=== PATIENT | female | born 1970 | race Caucasian/White ===

== ENCOUNTER → 2018-01-24 | Outpatient (CLI) | payer BC ==
[2018-01-24 13:41] VITALS: BP 101/60; PULSE 73; RESP 14; TEMP 98.7
--- NOTE | 2018-01-24 14:22 | FL ---
EXAMINATION TYPE: FL barium swallow DATE OF EXAM: 01/24/2018 CLINICAL HISTORY: History of lap band placed 14 years ago with dysphasia and uncontrolled weight loss . TECHNIQUE: A single contrast esophagram is performed utilizing barium. A total of 1.33 minutes of f luoroscopic time was utilized during procedure. 24 spot images are saved. COMPARISON: None FINDINGS: Preprocedure imaging shows normal angle PHI band but suspicious inferior positioning measu red 2.3 cm from left aspect of diaphragm. Cholecystectomy clips are incidentally noted. When patient drank contrast there is some rapid flow of contrast material lung periphery of the esoph carine and some delayed nonpulsatile flow. There is suspected intraluminal debris. Loss of normal mucos a is felt present. There is confirmation of lap band slippage as there is prominent stomach above lap band extending into the lower thoracic mediastinum. There is delay in flow of contrast at site of la p band with thin caliber channel. IMPRESSION: Abnormal study. Lap band slippage is confirmed. Moderate to severe stenosis at lap band. Abnormal appearance of esophagus overall. Consider endoscopy evaluation to further assess before surg ical removal.
[2018-01-24 14:35] VITALS: BMI 19.5
--- NOTE | 2018-01-24 15:29 | P.HPBAR ---
Bariatric H&P - History & Physicial H&P Date: 01/24/18 History & Physicial: Visit/CC: frequent heartburn/vomiting with band Patient initial contact: Initial weight: 107.955 kg Initial weight in pounds: 238.00 Height: 5 ft 2.5 in Initial BMI: 42.8 Last weight: Current weight: 49.124 kg Current weight in pounds: 108.30 Current BMI: 19.5 [place] body weight (based on NIH guidelines): 51.029 kg Excess body weight loss: 103.3% A she presents today for lab band follow up. She's not been seen in several years. She has some complaints of extra weight loss. Her BMI is 19. The patient is a 47 year-old F who presents for Bariatric Assessment. Past Medical History Past Medical History: Thyroid Disorder Additional Past Medical History / Comment(s): hyprothyroidism, History of Any Multi-Drug Resistant Organisms: None Reported Past Surgical History: Bariatric Surgery, Section, Cholecystectomy Additional Past Surgical History / Comment(s): Lap band placed January 2004, panniculectomy 2004, x2 (1996 & 1999), deviated septum 1994, heart catheterization February 2015 (did NOT have [place]; NO stent placement), D&C Additional Past Anesthesia/Blood Transfusion Reaction / Comm: "Extremely emotional" when she awakes from anesthesia, No blood transfusions to date Past Psychological History: Depression Smoking Status: Current every day smoker Past Alcohol Use History: Occasional Additional Past Alcohol Use History / Comment(s): started smoking at age 17, 1/ 2 pack/day current use Past Drug Use History: None Reported Surgical - Exam Vital Signs Temp Pulse Resp BP 98.7 F 73 14 101/60 01/24/18 13:13 01/24/18 13:13 01/24/18 13:13 01/24/18 13:13 - General well developed, no distress - Abdomen Abdomen: soft, non tender Bariatric Assessment & Plan Plan: Patient LAP-BAND was empty. She had 2.8 mL remove her band. Patient esophagram which showed a questionably displaced LAP-BAND. Is unclear. The prolapse. The patient had her band emptied in the office she was able to water without difficulty. She'll follow-up in one week for recheck. Bariatric Checklist Checklist: Plan: Checklist: EGD: 1. Hiatal hernia: 2. H. Pylori: HgbA1c: Vitamin D: Smoking: Current every day smoker Primary care physician referral: Dr. Carlos Ryan ([facility]) Psychiatry clearance: Cardiology clearance: Sleep study: Diet journal: VTE risk score: VTE risk level: Rehab needs at discharge:
== END | disposition home or self-care (01) ==
LOC: BARWHC3 13:05
PROVIDERS: ATTEND Surgery
DX: Z09 Encounter for follow-up examination after completed treatment for conditions other than malignant neoplasm (principal); K95.09 Other complications of gastric band procedure; R12 Heartburn; R11.10 Vomiting, unspecified; R63.4 Abnormal weight loss; E03.9 Hypothyroidism, unspecified; F32.9 Major depressive disorder, single episode, unspecified; F17.200 Nicotine dependence, unspecified, uncomplicated; Z90.49 Acquired absence of other specified parts of digestive tract; Z98.890 Other specified postprocedural states; Z98.84 Bariatric surgery status
CPT/HCPCS: 74220; 99203

== ENCOUNTER → 2018-01-31 | Outpatient (CLI) | payer BC ==
[2018-01-31 13:30] VITALS: BP 117/74; PULSE 71; RESP 16; TEMP 98.6; BMI 20.8
--- NOTE | 2018-01-31 14:05 | FL ---
SINGLE CONTRAST Esophagram : CLINICAL HISTORY: 47-year-old female with dysphagia and reflux, patient feels better after having fl uid removed on 01/24/2018. TECHNIQUE: Single contrast exam performed with 4 ounces of thin barium. Total fluoroscopy time: 2 minutes 17 seconds. Total images: 29. FINDINGS: The patient swallowed oral contrast without difficulty. However, there is progressive healing within the lower esophagus with progressive distention of the esophagus and only trickle flow across the GE junction and lap band was the patient has ingested all 4 ounces. At 10 minutes, most of the contrast remains pooled in the esophagus up to the mid chest and there are recurrent episodes of tertiary peristalsis. 20 minute post procedure image shows mild residual contrast in the lower esophagus with most of the c ontrast having passed into the distal stomach and proximal small bowel. IMPRESSION: There appears to be a relatively moderate obstruction at the level of the GE junction. The patient sw allowed a total of 4 ounces and during the first 10 minutes, contrast remained pooled in the dilated esophagus up to the mid chest and only trickle flow was seen across the GE junction and lap band. The 20 minute post procedure image shows most of the contrast in the distal stomach and proximal smal l bowel and a small amount of residual contrast in the lower esophagus. Consider further endoscopic evaluation for assessment of the GE junction.
--- NOTE | 2018-01-31 15:03 | P.HPBAR ---
Bariatric H&P - History & Physicial H&P Date: 01/31/18 History & Physicial: Visit/CC: esophagus follow-up Patient initial contact: Initial weight: 107.955 kg Initial weight in pounds: 238.00 Height: 5 ft 2.5 in Initial BMI: 42.8 Last weight: 108 Current weight: 52.617 kg Current weight in pounds: 116.00 Current BMI: 20.8 [place] body weight (based on NIH guidelines): 51.029 kg Excess body weight loss: 97.2% The patient is a 47 year-old F who presents for Bariatric Assessment. Patient presents for follow-up. She's had minimal dysphagia since her band was emptied. Her repeat esophagram shows evidence of improvement of her soft dilation. There is still some moderate hesitancy across the band. Patient's gained 10 pounds since her last visit. Past Medical History Past Medical History: Thyroid Disorder Additional Past Medical History / Comment(s): hyprothyroidism, History of Any Multi-Drug Resistant Organisms: None Reported Past Surgical History: Bariatric Surgery, Section, Cholecystectomy Additional Past Surgical History / Comment(s): Lap band placed January 2004, panniculectomy 2004, x2 (1996 & 1999), deviated septum 1994, heart catheterization February 2015 (did NOT have [place]; NO stent placement), D&C Additional Past Anesthesia/Blood Transfusion Reaction / Comm: "Extremely emotional" when she awakes from anesthesia, No blood transfusions to date Past Psychological History: Depression Smoking Status: Current every day smoker Past Alcohol Use History: Occasional Additional Past Alcohol Use History / Comment(s): started smoking at age 17, 1/ 2 pack/day current use Past Drug Use History: None Reported Surgical - Exam Vital Signs Temp Pulse Resp BP 98.6 F 71 16 117/74 01/31/18 13:27 01/31/18 13:27 01/31/18 13:27 01/31/18 13:27 - General well developed, no distress - Abdomen Abdomen: soft, non tender Bariatric Assessment & Plan Plan: The patient has no complaints of abdominal pain or significant dysphagia. She denies any nausea or vomiting. Her band is empty. The patient will be observed. She will follow-up in 4 weeks. She'll have another esophagram done. If she has persistent dilation of her esophagus she may require removal of her LAP-BAND. Bariatric Checklist Checklist: Plan: Checklist: EGD: 1. Hiatal hernia: 2. H. Pylori: HgbA1c: Vitamin D: Smoking: Current every day smoker Primary care physician referral: Dr. Carlos Ryan ([facility]) Psychiatry clearance: Cardiology clearance: Sleep study: Diet journal: VTE risk score: VTE risk level: Rehab needs at discharge:
== END | disposition home or self-care (01) ==
LOC: RADFLMAIN 10:55
PROVIDERS: ATTEND Surgery
DX: Z48.815 Encounter for surgical aftercare following surgery on the digestive system (principal); F17.200 Nicotine dependence, unspecified, uncomplicated; Z98.84 Bariatric surgery status
CPT/HCPCS: 74220; 99211

== ENCOUNTER → 2018-02-21 | Outpatient (CLI) | payer BC ==
--- NOTE | 2018-02-21 12:42 | FL ---
EXAMINATION TYPE: FL barium swallow DATE OF EXAM: 02/21/2018 LAP BANDING LIMITED ESOPHAGRAM: CLINICAL HISTORY: History of lap band for 14 years with fill recently removed. TECHNIQUE: Limited esophagram is performed utilizing 20oz of contrast. A total of 50 seconds of fluo roscopic time was utilized during procedure. 14 spot images are saved after preprocedure mixing machine tender cork rod image. COMPARISON: Prior Limited esophagram January 24, 2018 and January 31, 2018. FINDINGS: Pre-procedure mixing machine tender cork rod image shows lap band in satisfactory position in proximal stomach ju st below the left hemidiaphragm on current study. The Phi angle is normal. The patient then drank oral contrast. There is satisfactory flow of contrast along the course of the esophagus. There is good flow of contrast along the course of the lap band with thin caliber channel noted, there is no evidence of contrast extravasation to suggest leak. Underlying esophageal dysmoti lity is present. There is no convincing evidence of lap band slippage on current study as there is no t prominent stomach above the band. Cholecystectomy clips are redemonstrated. IMPRESSION: No evidence of lap band slippage on current study. No significant obstruction after fill removed
== END ==
LOC: RADFLMAIN 11:21
PROVIDERS: ATTEND Surgery
DX: Z98.84 Bariatric surgery status (principal)
CPT/HCPCS: 74220

== ENCOUNTER → 2018-02-21 | Outpatient (CLI) | payer BC ==
[2018-02-21 13:07] VITALS: BP 110/55; PULSE 78; RESP 16; TEMP 98.7; BMI 22.9
--- NOTE | 2018-02-21 15:35 | P.HPBAR ---
Bariatric H&P - History & Physicial H&P Date: 02/21/18 History & Physicial: Visit/CC: band adj Patient initial contact: Initial weight: 107.955 kg Initial weight in pounds: 238.00 Height: 5 ft 2.5 in Initial BMI: 42.8 Last weight: 116 Current weight: 57.833 kg Current weight in pounds: 127.50 Current BMI: 22.9 [place] body weight (based on NIH guidelines): 51.029 kg Excess body weight loss: 88.0% The patient is a 47 year-old F who presents for Bariatric Assessment. Patient presents today for lab band follow up. Her band was emptied 2 weeks ago. She has gained 11 pounds since then. She says her dysphagia has resolved. Her recent esophagram performed today shows no evidence of gastric prolapse or obstruction. Past Medical History Past Medical History: Thyroid Disorder Additional Past Medical History / Comment(s): hypothyroidism History of Any Multi-Drug Resistant Organisms: None Reported Past Surgical History: Bariatric Surgery, Section, Cholecystectomy Additional Past Surgical History / Comment(s): Lap band placed January 2004, panniculectomy 2004, x2 (1996 & 1999), deviated septum 1994, heart catheterization February 2015 (did NOT have [place]; NO stent placement), D&C Additional Past Anesthesia/Blood Transfusion Reaction / Comm: "Extremely emotional" when she awakes from anesthesia, No blood transfusions to date Past Psychological History: Depression Smoking Status: Current every day smoker Past Alcohol Use History: Occasional Additional Past Alcohol Use History / Comment(s): started smoking at age 17, 1/ 2 pack/day current use Past Drug Use History: None Reported Surgical - Exam Vital Signs Temp Pulse Resp BP 98.7 F 78 16 110/55 02/21/18 13:05 02/21/18 13:05 02/21/18 13:05 02/21/18 13:05 - General well developed, no distress - Eyes PERRL - ENT normal pinna - Neck no masses - Respiratory normal expansion - Cardiovascular Rhythm: regular - Abdomen Abdomen: soft, non tender Bariatric Assessment & Plan Plan: Patient is doing well since her LAP-BAND was emptied. Her dysphagia is minimal. Patient will follow-up in 4 weeks for recheck. We will leave her band emptied for now. Bariatric Checklist Checklist: Plan: Checklist: EGD: 1. Hiatal hernia: 2. H. Pylori: HgbA1c: Vitamin D: Smoking: Current every day smoker Primary care physician referral: Dr. Carlos Ryan ([facility]) Psychiatry clearance: Cardiology clearance: Sleep study: Diet journal: VTE risk score: VTE risk level: Rehab needs at discharge:
== END | disposition home or self-care (01) ==
LOC: BARWHC3 12:48
PROVIDERS: ATTEND Surgery
DX: Z48.815 Encounter for surgical aftercare following surgery on the digestive system (principal); F17.210 Nicotine dependence, cigarettes, uncomplicated; Z90.49 Acquired absence of other specified parts of digestive tract; Z98.84 Bariatric surgery status; Z98.890 Other specified postprocedural states
CPT/HCPCS: 99211

== ENCOUNTER → 2018-04-04 | Outpatient (CLI) | payer BC ==
--- NOTE | 2018-04-04 14:41 | FL ---
SINGLE CONTRAST BARIUM SWALLOW CLINICAL HISTORY: 48-year-old female follow-up for dysphasia, patient with Lap band fill removal. Ass ess for any obstruction. TECHNIQUE: Single contrast exam performed with thin barium. Total fluoroscopy time: 1 minute 32 seconds. Total images: 16. FINDINGS: Initial dough scaler and mixer image shows appropriate orientation of the lap band. The patient swallowed oral contras t without difficulty or delay. Contrast passes to the distal esophagus. There is partial flow across the lap band with some hesitancy. The contrast stream across the lap band appears narrowed given wandy t there is no fill. Some contrast remains within the mid to lower esophagus and there are resultant m oderate tertiary peristaltic contractions with intermittent intraesophageal reflux. IMPRESSION: 1. No evidence for lap band prolapse. 2. Slightly tight lap band with relative restriction despite no fill. 3. Approximately half of each swallow passes. The remainder stays pooled in the esophagus where terti lion peristaltic contractions ensue with intermittent intraesophageal reflux. Findings suggest early p resbyesophagus.
[2018-04-04 15:26] VITALS: BP 109/72; PULSE 80; TEMP 98.1; BMI 24.5
--- NOTE | 2018-04-05 11:17 | P.HPBAR ---
Bariatric H&P - History & Physicial H&P Date: 04/04/18 History & Physicial: Visit/CC: lap band follow up Patient initial contact: Initial weight: 107.955 kg Initial weight in pounds: 238.00 Height: 5 ft 2.5 in Initial BMI: 42.8 Last weight: Current weight: 61.961 kg Current weight in pounds: 136.60 Current BMI: 24.5 [place] body weight (based on NIH guidelines): 51.029 kg Excess body weight loss: 80.7% The patient is a 48 year-old F who presents for Bariatric Assessment. Patient has safer LAP-BAND follow-up. Her band was emptied her last visit. Her GERD centimeters and dysphagia have improved slightly. She has gained some weight since her last visit. Past Medical History Past Medical History: Thyroid Disorder Additional Past Medical History / Comment(s): hypothyroidism History of Any Multi-Drug Resistant Organisms: None Reported Past Surgical History: Bariatric Surgery, Section, Cholecystectomy Additional Past Surgical History / Comment(s): Lap band placed January 2004, panniculectomy 2004, x2 (1996 & 1999), deviated septum 1994, heart catheterization February 2015 (did NOT have [place]; NO stent placement), D&C Additional Past Anesthesia/Blood Transfusion Reaction / Comm: "Extremely emotional" when she awakes from anesthesia, No blood transfusions to date Past Psychological History: Depression Smoking Status: Current every day smoker Past Alcohol Use History: Occasional Additional Past Alcohol Use History / Comment(s): started smoking at age 17, 1/ 2 pack/day current use Past Drug Use History: None Reported Surgical - Exam Vital Signs Temp Pulse BP 98.1 F 80 109/72 04/04/18 14:47 04/04/18 14:47 04/04/18 14:47 - General well developed, no distress - Eyes PERRL - ENT normal pinna - Neck no masses - Abdomen Abdomen: soft, non tender Bariatric Assessment & Plan Plan: The patient had a repeat esophagram performed. She does have some persistent narrowing at the LAP-BAND device. Patient did not have an adjustment performed due to her GERD and dysphagia symptoms. She'll follow-up in one month for recheck. Bariatric Checklist Checklist: Plan: Checklist: EGD: 1. Hiatal hernia: 2. H. Pylori: HgbA1c: Vitamin D: Smoking: Current every day smoker Primary care physician referral: Dr. Carlos Ryan ([facility]) Psychiatry clearance: Cardiology clearance: Sleep study: Diet journal: VTE risk score: VTE risk level: Rehab needs at discharge:
== END | disposition home or self-care (01) ==
LOC: BARWHC3 12:40
PROVIDERS: ATTEND Surgery
DX: Z48.815 Encounter for surgical aftercare following surgery on the digestive system (principal); K21.9 Gastro-esophageal reflux disease without esophagitis; F32.9 Major depressive disorder, single episode, unspecified; F17.210 Nicotine dependence, cigarettes, uncomplicated; Z98.84 Bariatric surgery status; Z90.49 Acquired absence of other specified parts of digestive tract
CPT/HCPCS: 74220; 99211

== ENCOUNTER → 2018-04-18 | Outpatient (CLI) | payer BC ==
[2018-04-18 14:42] VITALS: BP 117/78; PULSE 66; TEMP 99.3; BMI 24.9
--- NOTE | 2018-04-18 14:56 | P.HPBAR ---
Bariatric H&P - History & Physicial H&P Date: 04/18/18 History & Physicial: Visit/CC: lap band follow up Patient initial contact: Initial weight: 107.955 kg Initial weight in pounds: 238.00 Height: 5 ft 2.5 in Initial BMI: 42.8 Last weight: Current weight: 62.777 kg Current weight in pounds: 138.40 Current BMI: 24.9 [place] body weight (based on NIH guidelines): 51.029 kg Excess body weight loss: 79.3% The patient is a 48 year-old F who presents for Bariatric Assessment. Patient presents today for lab band follow. She currently feels hungry. She has no fluid in her band. She is requesting a fill. Past Medical History Past Medical History: Thyroid Disorder Additional Past Medical History / Comment(s): hypothyroidism History of Any Multi-Drug Resistant Organisms: None Reported Past Surgical History: Bariatric Surgery, Section, Cholecystectomy Additional Past Surgical History / Comment(s): Lap band placed January 2004, panniculectomy 2004, x2 (1996 & 1999), deviated septum 1994, heart catheterization February 2015 (did NOT have [place]; NO stent placement), D&C Additional Past Anesthesia/Blood Transfusion Reaction / Comm: "Extremely emotional" when she awakes from anesthesia, No blood transfusions to date Past Psychological History: Depression Smoking Status: Current every day smoker Past Alcohol Use History: Occasional Additional Past Alcohol Use History / Comment(s): started smoking at age 17, 1/ 2 pack/day current use Past Drug Use History: None Reported Surgical - Exam Vital Signs Temp Pulse BP 99.3 F 66 117/78 04/18/18 14:38 04/18/18 14:38 04/18/18 14:38 - General well developed, no distress - Eyes PERRL - ENT normal pinna - Neck no masses - Respiratory normal expansion - Abdomen Abdomen: soft, non tender Bariatric Assessment & Plan Plan: Patient LAP-BAND was adjusted. She had 1.5 mL added to her band. She was able require without difficulty. She'll follow-up in 4 weeks. Bariatric Checklist Checklist: Plan: Checklist: EGD: 1. Hiatal hernia: 2. H. Pylori: HgbA1c: Vitamin D: Smoking: Current every day smoker Primary care physician referral: Dr. Carlos Ryan ([address], [place]) Psychiatry clearance: Cardiology clearance: Sleep study: Diet journal: VTE risk score: VTE risk level: Rehab needs at discharge:
== END | disposition home or self-care (01) ==
LOC: BARWHC3 13:16
PROVIDERS: ATTEND Surgery
DX: Z46.51 Encounter for fitting and adjustment of gastric lap band (principal); T73.0XXA Starvation, initial encounter; F17.200 Nicotine dependence, unspecified, uncomplicated; Z98.84 Bariatric surgery status; Z90.49 Acquired absence of other specified parts of digestive tract
CPT/HCPCS: 99212

== ENCOUNTER → 2018-07-11 | Outpatient (CLI) | payer BC ==
[2018-07-11 14:25] VITALS: BP 124/75; PULSE 70; RESP 16; TEMP 98.3; BMI 36.7
--- NOTE | 2018-07-11 16:03 | P.HPBAR ---
Bariatric H&P - History & Physicial H&P Date: 07/11/18 History & Physicial: Visit/CC: Band Adj Patient initial contact: Initial weight: 107.955 kg Initial weight in pounds: 238.00 Height: 6 ft 2 in Initial BMI: 30.5 Last weight: Current weight: 129.727 kg Current weight in pounds: 286.00 Current BMI: 36.7 [place] body weight (based on NIH guidelines): 77.111 kg Excess body weight loss: The patient is a 48 year-old F who presents for Bariatric Assessment. Patient presents today for lab band follow. She currently is hungry. She is requesting a fill of her band. Past Medical History Past Medical History: Thyroid Disorder Additional Past Medical History / Comment(s): hypothyroidism History of Any Multi-Drug Resistant Organisms: None Reported Past Surgical History: Bariatric Surgery, Section, Cholecystectomy Additional Past Surgical History / Comment(s): Lap band placed January 2004, panniculectomy 2004, x2 (1996 & 1999), deviated septum 1994, heart catheterization February 2015 (did NOT have [place]; NO stent placement), D&C Additional Past Anesthesia/Blood Transfusion Reaction / Comm: "Extremely emotional" when she awakes from anesthesia, No blood transfusions to date Past Psychological History: Depression Smoking Status: Current every day smoker Past Alcohol Use History: Occasional Additional Past Alcohol Use History / Comment(s): started smoking at age 17, 1/ 2 pack/day current use Past Drug Use History: None Reported Surgical - Exam Vital Signs Temp Pulse Resp BP 98.3 F 70 16 124/75 07/11/18 13:53 07/11/18 13:53 07/11/18 13:53 07/11/18 13:53 - General well developed, no distress - Eyes PERRL - ENT normal pinna - Neck no masses - Respiratory normal expansion - Cardiovascular Rhythm: regular - Abdomen Abdomen: soft, non tender Bariatric Assessment & Plan Plan: Patient's lap band was adjusted. She had 1 mL added to the band. She was able to water without difficulty. She'll follow-up in 4 weeks. Bariatric Checklist Checklist: Plan: Checklist: EGD: 1. Hiatal hernia: 2. H. Pylori: HgbA1c: Vitamin D: Smoking: Current every day smoker Primary care physician referral: Dr. Carlos Ryan ([address], [place]) Psychiatry clearance: Cardiology clearance: Sleep study: Diet journal: VTE risk score: VTE risk level: Rehab needs at discharge:
== END ==
LOC: BARWHC3 13:24
PROVIDERS: ATTEND Surgery
DX: Z48.815 Encounter for surgical aftercare following surgery on the digestive system (principal); F17.200 Nicotine dependence, unspecified, uncomplicated; Z98.84 Bariatric surgery status; Z90.49 Acquired absence of other specified parts of digestive tract
CPT/HCPCS: 99212

== ENCOUNTER → 2018-07-13 | Outpatient (CLI) | payer BC ==
[2018-07-13 10:31] VITALS: BP 117/68; PULSE 63; TEMP 98.2; BMI 25.3
== END | disposition home or self-care (01) ==
LOC: BARWHC3 10:15
PROVIDERS: ATTEND Surgery
DX: R13.10 Dysphagia, unspecified (principal); Z98.84 Bariatric surgery status
CPT/HCPCS: 99212

== ENCOUNTER → 2018-10-03 | Outpatient (CLI) | payer BC ==
[2018-10-03 13:33] VITALS: BP 126/84; PULSE 64; TEMP 98.7; BMI 27.7
--- NOTE | 2018-10-03 14:46 | P.HPBAR ---
Bariatric H&P - History & Physicial H&P Date: 10/03/18 History & Physicial: Visit/CC: lap band follow up Patient initial contact: Initial weight: 107.955 kg Initial weight in pounds: 238.00 Height: 5 ft 2.5 in Initial BMI: 42.8 Last weight: Current weight: 69.853 kg Current weight in pounds: 154.00 Current BMI: 27.7 [place] body weight (based on NIH guidelines): 51.029 kg Excess body weight loss: 66.9% The patient is a 48 year-old F who presents for Bariatric Assessment. Patient presents today for LAP-BAND adjustment. She currently has had some weight gain. She is requesting fluid to be added to her band. Past Medical History Past Medical History: Thyroid Disorder Additional Past Medical History / Comment(s): hypothyroidism History of Any Multi-Drug Resistant Organisms: None Reported Past Surgical History: Bariatric Surgery, Section, Cholecystectomy Additional Past Surgical History / Comment(s): Lap band placed January 2004, panniculectomy 2004, x2 (1996 & 1999), deviated septum 1994, heart catheterization February 2015 (did NOT have [place]; NO stent placement), D&C Additional Past Anesthesia/Blood Transfusion Reaction / Comm: "Extremely emotional" when she awakes from anesthesia, No blood transfusions to date Past Psychological History: Depression Smoking Status: Current every day smoker Past Alcohol Use History: Occasional Additional Past Alcohol Use History / Comment(s): started smoking at age 17, 1/ 2 pack/day current use Past Drug Use History: None Reported Surgical - Exam Vital Signs Temp Pulse BP 98.7 F 64 126/84 10/03/18 13:29 10/03/18 13:29 10/03/18 13:29 - General well developed, well nourished, no distress - Eyes PERRL - Abdomen Abdomen: soft, non tender Bariatric Assessment & Plan Plan: Patient LAP-BAND was adjusted. She had 0.2 mL added to her band. She is ill drink water the field. She'll follow-up in 4 weeks. Bariatric Checklist Checklist: Plan: Checklist: EGD: 1. Hiatal hernia: 2. H. Pylori: HgbA1c: Vitamin D: Smoking: Current every day smoker Primary care physician referral: Dr. Carlos Ryan ([facility]) Psychiatry clearance: Cardiology clearance: Sleep study: Diet journal: VTE risk score: VTE risk level: Rehab needs at discharge:
== END ==
LOC: BARWHC3 13:06
PROVIDERS: ATTEND Surgery
DX: Z48.815 Encounter for surgical aftercare following surgery on the digestive system (principal); F17.200 Nicotine dependence, unspecified, uncomplicated; Z98.84 Bariatric surgery status
CPT/HCPCS: 99212

== ENCOUNTER → 2018-10-31 | Outpatient (CLI) | payer BC ==
[2018-10-31 14:44] VITALS: BP 119/66; PULSE 96; TEMP 99.2; BMI 27.3
--- NOTE | 2018-11-07 16:09 | P.HPBAR ---
Bariatric H&P - History & Physicial H&P Date: 10/31/18 History & Physicial: Visit/CC: lap band fill Patient initial contact: Initial weight: 107.955 kg Initial weight in pounds: 238.00 Height: 5 ft 2.5 in Initial BMI: 42.8 Last weight: Current weight: 68.946 kg Current weight in pounds: 152.00 Current BMI: 27.3 [place] body weight (based on NIH guidelines): 51.029 kg Excess body weight loss: 68.5% The patient is a 48 year-old F who presents for Bariatric Assessment. Patient presents today lap band follow up. Patient is requesting a fill of her band. Past Medical History Past Medical History: Thyroid Disorder Additional Past Medical History / Comment(s): hypothyroidism History of Any Multi-Drug Resistant Organisms: None Reported Past Surgical History: Bariatric Surgery, Section, Cholecystectomy Additional Past Surgical History / Comment(s): Lap band placed January 2004, panniculectomy 2004, x2 (1996 & 1999), deviated septum 1994, heart catheterization February 2015 (did NOT have MA; NO stent placement), D&C Additional Past Anesthesia/Blood Transfusion Reaction / Comm: "Extremely emotional" when she awakes from anesthesia, No blood transfusions to date Past Psychological History: Depression Smoking Status: Current every day smoker Past Alcohol Use History: Occasional Additional Past Alcohol Use History / Comment(s): started smoking at age 17, 1/ 2 pack/day current use Past Drug Use History: None Reported Surgical - Exam Vital Signs Temp Pulse BP 99.2 F 96 119/66 10/31/18 14:41 10/31/18 14:41 10/31/18 14:41 - General well developed, well nourished, no distress - Eyes PERRL - ENT normal pinna - Neck no masses - Respiratory normal expansion - Cardiovascular Rhythm: regular - Abdomen Abdomen: soft, non tender Bariatric Assessment & Plan Plan: Patient LAP-BAND was adjusted. She had 0.3 mL added to her band. She currently is 2.5 mL in the band. She will follow-up in 4 weeks. Bariatric Checklist Checklist: Plan: Checklist: EGD: 1. Hiatal hernia: 2. H. Pylori: HgbA1c: Vitamin D: Smoking: Current every day smoker Primary care physician referral: Dr. Carlos Ryan ([address], [place]) Psychiatry clearance: Cardiology clearance: Sleep study: Diet journal: VTE risk score: VTE risk level: Rehab needs at discharge:
== END ==
LOC: BARWHC3 14:03
PROVIDERS: ATTEND Surgery
DX: Z48.815 Encounter for surgical aftercare following surgery on the digestive system (principal); Z98.84 Bariatric surgery status; F17.200 Nicotine dependence, unspecified, uncomplicated
CPT/HCPCS: 99212